=== PATIENT | male | born 1940 | race Caucasian/White ===

== ENCOUNTER 2017-03-03 10:54 | Observation (INO) | payer MEDICARE, OTHER ==
[~2017-03-03] VITALS: Ht 172.7 cm; Wt 87.8 kg
[2017-03-03] VITALS (9 sets, daily range): BP systolic 106–148; BP diastolic 53–70; PULSE 57–77; TEMP 98.3
[~2017-03-03 10:54] MED LIST: AMBIEN CR6.25 MG PO; COLACE 100100 MG/CAP PO; CYMBALTA 60MG60 MG PO; DEPO-TESTOS200 MG/M1 IM; DOVONEX0.005% TP; FIBER CHOICE1 CTB PO; FLONASE NASAL S16 GM NS; GABAPENTIN600 MG PO; GLUCOSAMINE & C1 CAP PO; GLUCOSAMINE/MSM1 TAB PO; HYDROCODONE/APAP; KEPPRA 500MG500 MG PO; KLONOPIN 0.5MG0.5 MG PO; MEGA RED KRILL OIL; MELATONIN5 M1 SL; METAMUCIL0.52 GM PO; MIDRIN CAPSULE1 CAP PO; MOBIC15 MG PO; NEURONTIN300 MG/CAP PO; NEURONTIN600 MG/TAB PO; NEXIUM 40MG40 MG PO; OMEGA 31000 MG PO; OMEPRAZOLE20 MG PO; PERCOCET 500 MG1 TAB PO; PERICOLACE 30 M1 CAP PO; PROTOPIC 0.1% O30 GM TP; PROTOPIC0.03% TP; SIMVASTATIN20 MG PO; SOMA 350MG350 MG/TAB PO; THERAGRAN M1 UDTAB PO; ZOVIRAX800 MG PO
[2017-03-03] MEDS ORDERED: NEURONTIN300 MG/CAP PO (12:10)
[2017-03-03] MEDS ORDERED: ZOCOR 40MG40 MG PO (12:13)
[2017-03-03] MEDS ORDERED: OSTEO-BI-FLEX 21 TAB PO (12:15)
[2017-03-03] MEDS ORDERED: OMEGA-31 SGL PO (12:15)
[2017-03-03] MEDS ORDERED: METAMUCIL MUL0.52 GM PO (12:16)
[2017-03-03] MEDS ORDERED: MELATONIN5 M1 SL (12:16)
[2017-03-03] MEDS ORDERED: ASPIRIN 32325 MG/TAB PO (12:16)
[2017-03-03] MEDS ORDERED: ANTIVERT 25MG25 MG PO (12:17)
[2017-03-03] MEDS ORDERED: ZYRTEC 10MG10 MG PO (12:17)
[2017-03-03] MEDS ORDERED: FLONASEALLERGY NS (12:17)
[2017-03-03] MEDS ORDERED: FLOMAX 0.40.4 MG/CAP PO (12:18)
[2017-03-04 02:00] VITALS: BP 106/61; PULSE 56; TEMP 98.2
[2017-03-04 05:23] VITALS: BP 108/60; PULSE 56; TEMP 98.5
[2017-03-04 07:50] LABS: MEAN CELL VOLUME 99 fl (80.0-100.0); MEAN CORPUSCULAR HEMOGLOBIN 35 pg (27.0-31.0); MEAN CORPUSCULAR HGB CONC 35 g/dl (33.0-37.0); MEAN PLATELET VOLUME 11.4 fl (7.4-10.4); PLATELET COUNT 163 K/mm3 (130-400); RED BLOOD COUNT 3.47 M/mm3 (4.20-5.60); WHITE BLOOD COUNT 10.4 K/mm3 (4.8-10.8)
[2017-03-04 08:08] LABS: HEMATOCRIT 34.4 % (42.0-52.0)
[2017-03-04 09:59] VITALS: BP 103/58; PULSE 72
[2017-03-04 13:34] VITALS: BP 106/40; PULSE 63; TEMP 97.5
[2017-03-04 18:42] VITALS: BP 117/67; PULSE 56
[2017-03-04 22:55] VITALS: BP 105/63; PULSE 57; TEMP 97.6
[2017-03-05 05:47] VITALS: BP 102/54; PULSE 68; TEMP 97.4
[2017-03-05 09:24] VITALS: BP 109/56; PULSE 63; TEMP 97.2
== END 2017-03-05 13:55 | disposition home or self-care (01) ==
LOC: SDCO 10:54 → SURG 15:27 → SDCO 03-04 09:00 → SURG 03-04 09:00
PROVIDERS: Urology
DX: N40.1 Benign prostatic hyperplasia with lower urinary tract symptoms (principal); N13.8 Other obstructive and reflux uropathy; R35.0 Frequency of micturition; N39.43 Post-void dribbling; R39.12 Poor urinary stream; E11.9 Type 2 diabetes mellitus without complications
CPT/HCPCS: OP; G0378; J0690; J1100; J2250; J2405; J2704; J3010; J7120

== ENCOUNTER 2017-03-24 08:00 | Outpatient (RCR) | payer MEDICARE, OTHER ==
[2006-04-28 12:10] VITALS: TEMP 97
[~2017-03-24 08:00] MED LIST changes: +ANTIVERT 25MG25 MG PO; +ASPIRIN 32325 MG/TAB PO; +FLOMAX 0.40.4 MG/CAP PO; +FLONASEALLERGY NS; +METAMUCIL MUL0.52 GM PO; +OMEGA-31 SGL PO; +OSTEO-BI-FLEX 21 TAB PO; +ZOCOR 40MG40 MG PO; +ZYRTEC 10MG10 MG PO
[2017-03-24] MEDS ORDERED: VITAMIN C500 MG PO (14:25)
[2017-03-24] MEDS ORDERED: NORCO 325 MG-7.1 TAB PO (14:32)
[2017-03-27] MEDS ORDERED: MULTI VITAMINS1 TAB PO (08:35)
[2017-03-27] MEDS ORDERED: MELATONIN5 M1 SL (08:36)
== END 2017-03-26 | disposition home or self-care (01) ==
LOC: WSPT
DX: M54.6 Pain in thoracic spine (principal); G89.29 Other chronic pain
CPT/HCPCS: G8978-GP; G8979-GP

== ENCOUNTER 2017-03-27 08:01 | Outpatient (CLI) | payer MEDICARE, OTHER ==
[~2017-03-27] VITALS: Ht 172.7 cm; Wt 86.1 kg
[~2017-03-27 08:01] MED LIST changes: +NORCO 325 MG-7.1 TAB PO; +VITAMIN C500 MG PO
[2017-03-27 08:15] VITALS: BP 100/69; PULSE 55
[2017-03-27] MEDS ORDERED: MULTI VITAMINS1 TAB PO (08:35)
[2017-03-27] MEDS ORDERED: MELATONIN5 M1 SL (08:36)
[2017-03-27 09:45] VITALS: BP 114/63; PULSE 55
[2017-03-27 09:51] VITALS: BP 114/63; PULSE 57
[2017-03-27 10:00] VITALS: BP 119/67; PULSE 54
[2017-03-27 10:15] VITALS: BP 122/66; PULSE 51
== END 2017-03-27 11:44 | disposition home or self-care (01) ==
LOC: COL.RAD 08:01
DX: M48.06 Spinal stenosis, lumbar region (principal); M50.30 Other cervical disc degeneration, unspecified cervical region; Z98.1 Arthrodesis status
CPT/HCPCS: Q9967

== ENCOUNTER → 2017-04-08 | Outpatient (CLI) | payer MEDICARE, OTHER ==
[~2017-04-08] MED LIST changes: +MULTI VITAMINS1 TAB PO; +PLAVIX 75MG TAB75 MG PO
== END ==
LOC: COL.VAS 12:19
DX: I77.1 Stricture of artery (principal); I70.209 Unspecified atherosclerosis of native arteries of extremities, unspecified extremity; I73.9 Peripheral vascular disease, unspecified

== ENCOUNTER → 2017-04-10 | Outpatient (CLI) | payer MEDICARE, OTHER | LOC: MHCPAIN 08:47 | DX: G89.29 Other chronic pain (principal); M47.817 Spondylosis without myelopathy or radiculopathy, lumbosacral region; M54.16 Radiculopathy, lumbar region; M53.3 Sacrococcygeal disorders, not elsewhere classified; M96.1 Postlaminectomy syndrome, not elsewhere classified; M54.81 Occipital neuralgia; M50.90 Cervical disc disorder, unspecified, unspecified cervical region; M54.12 Radiculopathy, cervical region; R51 Headache | CPT/HCPCS: G0463 ==

== ENCOUNTER 2017-04-14 08:00 | Outpatient (RCR) | payer MEDICARE, OTHER ==
[~2017-04-14 08:00] MED LIST changes: -PLAVIX 75MG TAB75 MG PO
== END 2017-04-17 10:54 | disposition still patient (30) ==
LOC: WSPT 08:00
DX: M54.9 Dorsalgia, unspecified (principal)
CPT/HCPCS: G8978-GP; G8979-GP; G8980-GP

== ENCOUNTER → 2017-04-16 | Outpatient (CLI) | payer MEDICARE, OTHER ==
[~2017-04-16] MED LIST changes: +PLAVIX 75MG TAB75 MG PO
== END ==
LOC: MHCPAIN 10:23
DX: M53.3 Sacrococcygeal disorders, not elsewhere classified (principal)
CPT/HCPCS: G0260; J1040; Q9967

== ENCOUNTER 2017-04-30 06:55 | Day surgery (SDC) | payer MEDICARE, OTHER ==
[~2017-04-30] VITALS: Ht 172.8 cm; Wt 85.9 kg
[2017-04-30] VITALS (16 sets, daily range): BP systolic 91–159; BP diastolic 60–88; PULSE 44–62; TEMP 97.3
[~2017-04-30 06:55] MED LIST changes: -PLAVIX 75MG TAB75 MG PO
[2017-04-30] MEDS ORDERED: ANTIVERT 25MG25 MG PO (07:44)
[2017-04-30 08:38] LABS: HEMOGLOBIN 13.1 g/dl (13.5-18.0); MEAN CELL VOLUME 96 fl (80.0-100.0); MEAN CORPUSCULAR HEMOGLOBIN 35 pg (27.0-31.0); MEAN CORPUSCULAR HGB CONC 36 g/dl (33.0-37.0); MEAN PLATELET VOLUME 10.9 fl (7.4-10.4); PLATELET COUNT 151 K/mm3 (130-400); REDCELL DISTRIBUTION WIDTH-CV 12.7 % (11.5-14.5)
[2017-04-30 08:39] LABS: HEMATOCRIT 36.5 % (42.0-52.0)
[2017-04-30 08:47] LABS: INR 1.1 (0.8-3.0); PROTHROMBIN TIME 12.3 SECONDS (9.7-12.8)
[2017-04-30 09:01] LABS: CREATININE, serum 0.64 mg/dL (0.66-1.25)
[2017-04-30] MEDS ORDERED: PLAVIX 75MG TAB75 MG PO (15:15)
== END 2017-04-30 19:40 | disposition home or self-care (01) ==
LOC: COL.CAR 06:55
PROVIDERS: Radiology Diagnostic Radiology
DX: I70.213 Atherosclerosis of native arteries of extremities with intermittent claudication, bilateral legs (principal); E78.00 Pure hypercholesterolemia, unspecified; E11.9 Type 2 diabetes mellitus without complications; F32.9 Major depressive disorder, single episode, unspecified; Z87.891 Personal history of nicotine dependence
CPT/HCPCS: C1724; C1725; C1769; C1876; C1887; C1894; J1644; J2250; J3010; Q9967

== ENCOUNTER → 2017-09-28 | Outpatient (CLI) | payer MEDICARE, OTHER ==
[~2017-09-28] MED LIST changes: +PLAVIX 75MG TAB75 MG PO
== END ==
LOC: COL.VAS 12:26
DX: I70.201 Unspecified atherosclerosis of native arteries of extremities, right leg (principal); Z86.79 Personal history of other diseases of the circulatory system

== ENCOUNTER 2019-12-13 15:45 | Outpatient (RCR) | payer MEDICARE, OTHER ==
[2019-12-22] MEDS ORDERED: CRESTOR20 MG PO (10:54)
[2019-12-22] MEDS ORDERED: OTEZLA PO (10:55)
[2019-12-22] MEDS ORDERED: PROTONIX20 MG PO (10:55)
[2019-12-22] MEDS ORDERED: ZOFRAN 4MG T4 MG/TAB PO (10:56)
== END 2020-01-16 | disposition still patient (30) ==
LOC: WSC
DX: M15.0 Primary generalized (osteo)arthritis (principal); M50.90 Cervical disc disorder, unspecified, unspecified cervical region; M47.816 Spondylosis without myelopathy or radiculopathy, lumbar region

== ENCOUNTER 2019-12-22 09:34 | Outpatient (CLI) | payer MEDICARE, OTHER ==
[~2019-12-22] VITALS: Ht 172.7 cm; Wt 83.4 kg
[2019-12-22] MEDS ORDERED: CRESTOR20 MG PO (10:54)
[2019-12-22] MEDS ORDERED: OTEZLA PO (10:55)
[2019-12-22] MEDS ORDERED: PROTONIX20 MG PO (10:55)
[2019-12-22] MEDS ORDERED: ZOFRAN 4MG T4 MG/TAB PO (10:56)
[2019-12-22 11:03] VITALS: BP 138/77; PULSE 78
[2019-12-22 11:38] VITALS: BP 148/82; PULSE 55
[2019-12-22 11:45] VITALS: BP 148/72; PULSE 50
[2019-12-22 13:30] VITALS: BP 117/59; PULSE 61
== END 2019-12-22 13:50 | disposition home or self-care (01) ==
LOC: COL.RAD 09:34
DX: M47.22 Other spondylosis with radiculopathy, cervical region (principal); M96.1 Postlaminectomy syndrome, not elsewhere classified; Z98.1 Arthrodesis status; M48.02 Spinal stenosis, cervical region

== ENCOUNTER → 2020-04-10 | Outpatient (CLI) | payer MEDICARE, OTHER ==
[~2020-04-10] MED LIST changes: +CRESTOR20 MG PO; +OTEZLA PO; +PROTONIX20 MG PO; +ZOFRAN 4MG T4 MG/TAB PO
== END ==
LOC: COL.RAD 10:57
DX: M54.2 Cervicalgia (principal); Z98.1 Arthrodesis status

== ENCOUNTER 2020-05-21 09:21 | Outpatient (CLI) | payer MEDICARE, OTHER ==
[~2020-05-21] VITALS: Ht 172.7 cm; Wt 83.9 kg
[2020-05-21 09:56] VITALS: BP 122/70; PULSE 60
[2020-05-21 11:05] VITALS: BP 124/70; PULSE 47; PULSE 48
[2020-05-21 11:10] VITALS: BP 129/83; PULSE 69
[2020-05-21 11:25] VITALS: BP 149/80; PULSE 48
[2020-05-21 11:40] VITALS: BP 134/86; PULSE 44
[2020-05-21 11:55] VITALS: BP 136/86; PULSE 50
--- NOTE | 2020-05-21 12:44 | NUR ---
Discharge instructions given to pt.Pt verbalizes understanding.Pt escorted out by this nurse.
== END 2020-05-21 12:49 | disposition home or self-care (01) ==
LOC: COL.RAD 09:21
DX: M48.07 Spinal stenosis, lumbosacral region (principal); M51.17 Intervertebral disc disorders with radiculopathy, lumbosacral region; M47.27 Other spondylosis with radiculopathy, lumbosacral region
CPT/HCPCS: Q9965

== ENCOUNTER → 2020-07-09 | Outpatient (CLI) | payer MEDICARE, OTHER | LOC: MHCPAIN 13:16 | DX: M47.812 Spondylosis without myelopathy or radiculopathy, cervical region (principal); M54.2 Cervicalgia; M96.1 Postlaminectomy syndrome, not elsewhere classified; G89.29 Other chronic pain; M54.12 Radiculopathy, cervical region; R51 Headache | CPT/HCPCS: G0463 ==

== ENCOUNTER → 2020-07-18 | Outpatient (CLI) | payer MEDICARE, OTHER | LOC: MHCPAIN 12:46 | DX: M54.5 Low back pain (principal); M47.812 Spondylosis without myelopathy or radiculopathy, cervical region | CPT/HCPCS: J1040 ==

== ENCOUNTER → 2020-08-29 | Outpatient (CLI) | payer MEDICARE, OTHER | LOC: COL.RAD 08-23 14:15 | DX: R59.1 Generalized enlarged lymph nodes (principal) ==

== ENCOUNTER 2020-09-10 08:07 | Outpatient (CLI) | payer MEDICARE, OTHER ==
[~2020-09-10] VITALS: Ht 172.8 cm; Wt 86.3 kg
[2020-09-10] MEDS ORDERED: ASPIRIN E.C. 8181 MG PO (09:12)
[2020-09-10] MEDS ORDERED: ULTRAM 50MG TAB50 MG PO (09:12)
[2020-09-10] MEDS ORDERED: ZANAFLEX 4MG TAB4 MG PO (09:13)
[2020-09-10 09:43] VITALS: BP 102/61; PULSE 54; TEMP 97.5
[2020-09-10] MEDS ORDERED: TOPROL XL 50MG50 MG PO (09:49)
[2020-09-10] MEDS ORDERED: CEPHALEXIN500 M1 PO (09:50)
--- NOTE | 2020-09-10 10:30 | NUR ---
Sat up to get dressed and Loop Recorder incision started to bleed. Denisha HOWE called and placed new steri-strips and redressed incision.
[2020-09-10 10:55] VITALS: BP 102/61; PULSE 68; TEMP 97.5
--- NOTE | 2020-09-10 10:55 | NUR ---
Discharge instructions given. Transferred to private car by tan
== END 2020-09-10 10:55 | disposition home or self-care (01) ==
LOC: COL.CAR 08:07
DX: I47.1 Supraventricular tachycardia (principal); R00.2 Palpitations; F41.9 Anxiety disorder, unspecified; M19.90 Unspecified osteoarthritis, unspecified site; F32.9 Major depressive disorder, single episode, unspecified; K21.9 Gastro-esophageal reflux disease without esophagitis; E78.00 Pure hypercholesterolemia, unspecified; G00.9 Bacterial meningitis, unspecified; E11.42 Type 2 diabetes mellitus with diabetic polyneuropathy; Z90.49 Acquired absence of other specified parts of digestive tract; Z79.01 Long term (current) use of anticoagulants; Z87.891 Personal history of nicotine dependence; Z85.820 Personal history of malignant melanoma of skin; I51.7 Cardiomegaly

== ENCOUNTER → 2020-09-18 | Outpatient (CLI) | payer MEDICARE, OTHER ==
[~2020-09-18] VITALS: Ht 172.7 cm; Wt 83.0 kg
[~2020-09-18] MED LIST changes: +ASPIRIN E.C. 8181 MG PO; +CEPHALEXIN500 M1 PO; +MASON NATURAL S1 CAP PO; -MULTI VITAMINS1 TAB PO; +TOPROL XL 50MG50 MG PO; +ULTRAM 50MG TAB50 MG PO; +ZANAFLEX 4MG TAB4 MG PO
[2020-09-18 12:22] VITALS: BP 128/67; PULSE 62
[2020-09-18 13:50] VITALS: BP 169/94; PULSE 59
== END ==
LOC: COL.RAD 12:00
DX: M79.89 Other specified soft tissue disorders (principal); R59.1 Generalized enlarged lymph nodes

== ENCOUNTER 2021-01-10 07:33 | Outpatient (RCR) | payer MEDICARE, OTHER ==
[~2021-01-10] VITALS: Ht 172.7 cm; Wt 84.3 kg
[2021-01-10] VITALS (9 sets, daily range): BP systolic 91–122; BP diastolic 57–86; PULSE 70–81; TEMP 98.1–98.8
[2021-01-10] MEDS ORDERED: ZOFRAN 4MG T4 MG/TAB PO (10:09)
[2021-01-10] MEDS ORDERED: ANTIVERT 25MG25 MG PO (10:10)
[2021-01-10] MEDS ORDERED: FENTANYL 25 MCG TD (10:23)
[2021-01-10] MEDS ORDERED: OXYCODONE H5 MG/5 ML PO (10:24)
[2021-01-10] MEDS ORDERED: MIRALAX PA17 GM/Dose PO (10:24)
--- NOTE | 2021-01-10 14:02 | NUR ---
Pt assisted out to 's car by wheelchair with belongings. He tolerated transfusions without issue. States dizziness with position changes improved.
== END 2021-01-10 14:03 | disposition home or self-care (01) ==
LOC: EUO 07:33
DX: Z95.9 Presence of cardiac and vascular implant and graft, unspecified (principal)
CPT/HCPCS: J1644; J7050; P9016

== ENCOUNTER 2021-01-11 17:05 | Outpatient (CLI) | payer MEDICARE, OTHER ==
[~2021-01-11] VITALS: Ht 172.7 cm; Wt 83.0 kg
[~2021-01-11 17:05] MED LIST changes: +FENTANYL 25 MCG TD; +MIRALAX PA17 GM/Dose PO; +OXYCODONE H5 MG/5 ML PO
[2021-01-11 19:10] VITALS: BP 122/75; PULSE 68; TEMP 97.9
[2021-01-11 19:21] VITALS: BP 126/74; PULSE 66
--- NOTE | 2021-01-11 20:34 | NUR ---
Pt tolerated infusion well. nausea improved. pt has not had any vomiting, and has been able to tolerated some ice chips and water. pt escorted to exit via wheelchair, although he was able to ambulate to br in rm 11 with steady gait.
== END 2021-01-11 20:35 | disposition home or self-care (01) ==
LOC: EUO 17:05
DX: C01 Malignant neoplasm of base of tongue (principal); C77.0 Secondary and unspecified malignant neoplasm of lymph nodes of head, face and neck
CPT/HCPCS: J1100; J1644; J2405; J7030

== ENCOUNTER 2021-01-18 06:29 | Day surgery (SDC) | payer MEDICARE, OTHER ==
[2021-01-18] VITALS (8 sets, daily range): BP systolic 116–147; BP diastolic 59–77; PULSE 67–87; TEMP 98.7–98.9
[~2021-01-18] VITALS: Ht 172.7 cm; Wt 78.7 kg
[2021-01-18] MEDS ORDERED: ZYRTEC 10MG10 MG PO (07:00)
[2021-01-18] MEDS ORDERED: OTEZLA PO (07:01)
[2021-01-18 07:27] LABS: ALBUMIN 3.6 gm/dL (3.5-5.0); CALCIUM 8.9 mg/dL (8.4-10.2); CREATININE, serum 0.69 (0.66-1.25); POTASSIUM 3.4 mmol/L (3.4-5.0)
--- NOTE | 2021-01-18 09:10 | NUR ---
Patient arrives to [facility] post-op. He is drowsy, but oriented. He denies pain, nausea, or need. His is at the bedside. He has a dressing surrounding his PEG tube insertion site. The dressing has some bloody drainage on it right at the tube site. Monitoring is applied -VSS and WNL on room air. He requests and receives ice chips.
--- NOTE | 2021-01-18 09:25 | NUR ---
Patient is resting comfortably in room. Tolerating PO well. VSS.
--- NOTE | 2021-01-18 09:40 | NUR ---
VSS on room air. PEG tube teaching is completed with the patient and his . They are able to teach back, verbalize understanding and deny any questions. They are given the discharge instructions. After discussion, they deny any questions and verbalize understanding.
--- NOTE | 2021-01-18 09:55 | NUR ---
Patient is resting in his room. VSS on room air. He complains of mild pain at the operative site. Will return with medication.
--- NOTE | 2021-01-18 10:10 | NUR ---
1010 Bridger elixir is scanned for patient administration. When handed to the patient, he states he feels like he is going to vomit. He is sat up on the side of the bed and vomits 50mL of green bile. 1018 Patient is given Zofran for nausea. 1030 Patient is resting in bed, lying down, cool washcloth on head. Will wait to administer Bridger when he is feeling better - he and his agree with this treatment plan.
--- NOTE | 2021-01-18 10:35 | NUR ---
Patient is asleep in his room. VSS on room air.
--- NOTE | 2021-01-18 10:57 | NUR ---
Patient states he is feeling better and would like to try to [facility]. He takes the [facility] at 1057.
--- NOTE | 2021-01-18 11:32 | NUR ---
Patient ambulates to the restroom with standby assist and steady gait. He voids and returns to his room. He is dressing.
--- NOTE | 2021-01-18 11:41 | NUR ---
Patient has met discharge criteria. He states that he is feeling much better and would like to go home. Port-a-cath was deaccessed per protocol and without complications. A bandaid is placed over the insertion site. He changes to his clothing independently. He is escorted to the exit via wheelchair by staff. He is discharged to the care of his , who drives him home in a private vehicle. He is discharged at 1141.
--- NOTE | 2021-01-18 15:37 | NUR ---
[facility] consulted for the patient due initiation of tube feedings. SW and Dietitian met with the patient and his , Solange. Solange is nurse. They refused home health services. Supplies to be ordered from [facility]. Referral faxed. Tina with [facility] can fill the order. Solange to turkey picker order. There are no additional needs.
== END 2021-01-18 11:41 | disposition home or self-care (01) ==
LOC: SDCO
PROVIDERS: Surgery
DX: C02.9 Malignant neoplasm of tongue, unspecified (principal); C76.0 Malignant neoplasm of head, face and neck; E78.5 Hyperlipidemia, unspecified; G40.909 Epilepsy, unspecified, not intractable, without status epilepticus; E11.9 Type 2 diabetes mellitus without complications; G47.30 Sleep apnea, unspecified; K21.9 Gastro-esophageal reflux disease without esophagitis; Z20.822 Contact with and (suspected) exposure to COVID-19; Z79.899 Other long term (current) drug therapy; Z79.02 Long term (current) use of antithrombotics/antiplatelets; Z87.891 Personal history of nicotine dependence
CPT/HCPCS: J1644; J2405; J2704; J7120

== ENCOUNTER 2021-02-12 15:00 | Outpatient (RCR) | payer MEDICARE, OTHER | END 2021-02-18 | disposition home or self-care (01) | LOC: WSST | DX: C77.0 Secondary and unspecified malignant neoplasm of lymph nodes of head, face and neck (principal) ==

== ENCOUNTER 2021-02-28 12:00 | Outpatient (RCR) | payer MEDICARE, OTHER | END 2021-05-29 | disposition home or self-care (01) | LOC: WSST | DX: C77.0 Secondary and unspecified malignant neoplasm of lymph nodes of head, face and neck (principal) ==

== ENCOUNTER 2023-09-10 15:00 | Outpatient (RCR) | payer MEDICARE, OTHER | END 2023-09-15 | disposition home or self-care (01) | LOC: WSST | DX: R13.12 Dysphagia, oropharyngeal phase (principal) ==

== ENCOUNTER 2023-10-14 12:45 | Outpatient (RCR) | payer MEDICARE, OTHER | END 2023-10-15 | disposition home or self-care (01) | LOC: WSST | DX: R13.12 Dysphagia, oropharyngeal phase (principal); C77.0 Secondary and unspecified malignant neoplasm of lymph nodes of head, face and neck ==